=== PATIENT | female | born 1975 | race Caucasian/White ===

== ENCOUNTER 2019-02-20 10:32 | Emergency (ER) | payer MEDICAID ==
[~2019-02-20] VITALS: Ht 162.6 cm; Wt 101.2 kg
[2019-02-20 10:55] VITALS: Ht 162.6 cm; Wt 101.2 kg
[2019-02-20 12:46] VITALS: BP 127/83
== END 2019-02-20 12:45 | disposition home or self-care (01) ==
LOC: ED 10:32
DX: J36 Peritonsillar abscess (principal); J45.909 Unspecified asthma, uncomplicated
CPT/HCPCS: J1100

== ENCOUNTER 2019-05-19 10:35 | Emergency (ER) | payer MEDICAID ==
[~2019-05-19] VITALS: Ht 162.6 cm; Wt 98.0 kg
[2019-05-19 11:23] VITALS: BP 112/69; Ht 162.6 cm; Wt 98.0 kg
== END 2019-05-19 12:21 | disposition home or self-care (01) ==
LOC: ED 10:35
DX: R07.0 Pain in throat (principal); J45.909 Unspecified asthma, uncomplicated; Z90.89 Acquired absence of other organs

== ENCOUNTER 2019-10-29 05:11 | Emergency (ER) | payer MEDICAID ==
[~2019-10-29] VITALS: Ht 154.9 cm; Wt 102.5 kg
[2019-10-29 05:22] VITALS: Ht 154.9 cm; Wt 102.5 kg
[2019-10-29 07:50] VITALS: BP 139/74
== END 2019-10-29 07:50 | disposition home or self-care (01) ==
LOC: ED 05:11
DX: S93.491A Sprain of other ligament of right ankle, initial encounter (principal); J45.909 Unspecified asthma, uncomplicated; Z90.89 Acquired absence of other organs; X58.XXXA Exposure to other specified factors, initial encounter; Y93.39 Activity, other involving climbing, rappelling and jumping off; Y92.89 Other specified places as the place of occurrence of the external cause; Y99.8 Other external cause status
CPT/HCPCS: Q0092